=== PATIENT | female | born 1945 | race African-American/Black ===

== ENCOUNTER 2020-12-12 11:39 | Emergency (ER) | payer MEDICARE, OTHER ==
[~2020-12-12] VITALS: Ht 167.6 cm; Wt 95.5 kg
[2020-12-12] MEDS ORDERED: AMLO1CAP PO (12:03)
[2020-12-12 13:31] LABS: ANION GAP 8 mmol/L (8-16); CALCIUM, TOTAL 9.5 mg/dL (8.8-10.5); CARBON DIOXIDE 29 mmol/L (22-29); CHLORIDE 104 mmol/L (98-107); GLUCOSE,RANDOM 94 mg/dL (70-110); POTASSIUM 4.4 mmol/L (3.5-5.1); SODIUM SERUM 141 mmol/L (136-145); UREA NITROGEN, BLOOD 17 mg/dL (7-18)
[2020-12-12 13:32] VITALS: BP 114/71
[2020-12-12 13:37] LABS: ALANINE AMINOTRANSFERASE 17 U/L (12-78); ALBUMIN 3.5 g/dL (3.4-5.0); ALKALINE PHOSPHATASE 89 U/L (46-116); ASPARTATE AMINOTRANSFERASE 30 U/L (15-37); BILIRUBIN,TOTAL 0.4 mg/dL (0.1-1.0); TOTAL PROTEIN, SERUM 8.1 g/dL (6.4-8.2)
[2020-12-12 13:41] LABS: GLOMERULAR FILTR. RATE CALC > 60 mL/min (>60)
[2020-12-12] MEDS ORDERED: CEPHALEXIN MONOHYDRATE 500 MG CAPSULE PO ONE (15:15)
== END 2020-12-12 15:17 | disposition left against medical advice (07) ==
LOC: EMS 11:39
DX: L03.116 Cellulitis of left lower limb (principal); L30.9 Dermatitis, unspecified; I10 Essential (primary) hypertension; Z90.89 Acquired absence of other organs; Z91.018 Allergy to other foods
CPT/HCPCS: 80053; 93926; 93971; 99284; 99285

== ENCOUNTER 2022-05-14 10:42 | Day surgery (SDC) | payer MEDICARE, OTHER ==
[2022-05-13 14:46] LABS: COVID AG,FIA SOURCE NASAL SWAB
[~2022-05-14] VITALS: Ht 152.4 cm; Wt 121.4 kg
[~2022-05-14 10:42] MED LIST: AMLO1CAP PO; ESOM20CA31 PO; SODIUM CHLORIDE 0.9% 1,000 ML IV ONE; SODIUM CHLORIDE 0.9% 1,000 ML ONE
[2022-05-14] MEDS ORDERED: PROPOFOL 1% 20 ML VIAL IVP ONE (12:00)
[2022-05-14] MEDS ORDERED: LIDOCAINE/PF 2% 5 ML VIAL IM ONE (12:00)
== END 2022-05-14 14:45 | disposition home or self-care (01) ==
LOC: SURGERY 10:42
PROVIDERS: ATTEND Internal Medicine Gastroenterology
DX: K63.5 Polyp of colon (principal); K64.0 First degree hemorrhoids; E66.01 Morbid (severe) obesity due to excess calories; I10 Essential (primary) hypertension; Z20.822 Contact with and (suspected) exposure to COVID-19; Z90.49 Acquired absence of other specified parts of digestive tract; Z98.890 Other specified postprocedural states; Z79.82 Long term (current) use of aspirin; Z88.8 Allergy status to other drugs, medicaments and biological substances; Z91.018 Allergy to other foods
CPT/HCPCS: 45380; 87426; C9803; C1769; J2704; J3490; J7030; 88305